=== PATIENT | male | born 1960 | race Two or more races ===

== ENCOUNTER 2023-04-11 06:34 | Day surgery (SDC) | payer OTHER ==
[~2023-04-11] VITALS: Ht 175.3 cm; Wt 68.0 kg
[~2023-04-11 06:34] MED LIST: ATO40T PO; DOXAPRAM HCL 20 MG/ML 20ML VIAL INJ IV ONE; DexAMETHasone SOD PHOS 10MG/1ML VIAL INJ ONE; GLYCOPYRROLATE 0.2 MG/ML 1ML VIAL ONE; LIDOCAINE 1% HCL (LOCAL ANESTH.) INJ 20ML MDV ONE; LIDOCAINE 2% JELLY 11ml (GLYDO) ONE; MEPERIDINE HCL (25 MG/ML) 1ML VIAL ONE; MIDAZOLAM HCL 2MG/2ML 2ml VIAL (1mg/ml) ONE; NEOSTIGMINE 1 MG/ML INJ (10mg/10ML VIAL) ONE; ONDANSETRON HCL 4 MG/2 ML VIAL ONE; PROPOFOL 10 MG/ML 20 ML IV ONE; ROCURONIUM 10MG/ML 10ML VIAL IV ONE; SODIUM CHLORIDE LOCK 0 ML ONE; SUCCINYLCHOLINE CHLORIDE 20 MG/ML 10ML VIAL IV ONE; TAMS0.4C36 PO; fentaNYL CITRATE 0 ML ONE
[2023-04-11] MEDS ORDERED: GABAPENTIN 300 MG CAP PO ONE (06:45)
[2023-04-11] MEDS ORDERED: CELECOXIB 100 MG CAP PO ONE (06:45)
[2023-04-11] MEDS ORDERED: ACETAMINOPHEN IV 1000 MG/100ML (10MG/ML) IV ONE (06:45)
[2023-04-11] MEDS ORDERED: ceFAZolin 2 GM/D5W100ml 100 ML IV ONE (07:31)
[2023-04-11 07:40] VITALS: TEMP 97.9
[2023-04-11] MEDS ORDERED: LIDOCAINE HCL (LOCAL ANESTH.) 0.5 % 50ML MDV IJ ONE (08:06)
[2023-04-11] MEDS ORDERED: PROPOFOL 10 MG/ML 20 ML IV ONE (08:25)
[2023-04-11] MEDS ORDERED: LIDOCAINE 2% (LOCAL ANESTH.) PF 5ml SDV ONE ×2 (08:26→09:47)
[2023-04-11] MEDS ORDERED: ONDANSETRON HCL 4 MG/2 ML VIAL ONE (08:26)
[2023-04-11] MEDS ORDERED: DexAMETHasone SOD PHOS 10MG/1ML VIAL INJ ONE (08:26)
[2023-04-11] MEDS ORDERED: KETOROLAC TROMETH 30 MG/ML 1ML VIAL ONE (08:26)
[2023-04-11] MEDS ORDERED: ROCURONIUM 10MG/ML 10ML VIAL IV ONE (08:26)
[2023-04-11] MEDS ORDERED: GLYCOPYRROLATE 0.2 MG/ML 1ML VIAL ONE (08:26)
[2023-04-11] MEDS ORDERED: fentaNYL CITRATE 100 MCG/2 ML VL ONE (08:29)
[2023-04-11] MEDS ORDERED: SUGAMMADEX 200mg/2ml Vial (100MG/ML) IV ONE (08:29)
[2023-04-11] MEDS ORDERED: ePHEDrine SULFATE 50 MG/ML AMP ONE (08:56)
[2023-04-11 10:52] VITALS: O2SAT 96
[2023-04-11] MEDS ORDERED: fentaNYL CITRATE 100 MCG/2 ML VL IV PRN (11:00)
[2023-04-11] MEDS ORDERED: oxyCODONE HCL 5MG TAB PO PRN (11:00)
[2023-04-11] MEDS ORDERED: HYDROmorphone HCL 2 MG/ML VL/or syr IV PRN (11:00)
[2023-04-11] MEDS ORDERED: NALOXONE HCL 0.4 MG/ML VIAL IV PRN (11:00)
[2023-04-11] MEDS ORDERED: ePHEDrine SULFATE 50 MG/ML AMP IV PRN (11:00)
[2023-04-11] MEDS ORDERED: LABETALOL HCL 5 MG/ML 4ML SYRINGE IV PRN (11:00)
[2023-04-11] MEDS ORDERED: FLUMAZENIL 0.1 MG/ML INJ 10ML MDV IV PRN (11:00)
[2023-04-11] MEDS ORDERED: ONDANSETRON HCL 4 MG/2 ML VIAL IV PRN (11:00)
[2023-04-11] MEDS ORDERED: hydrALAZINE HCL 20 MG/ML VL IV PRN (11:00)
[2023-04-11] MEDS ORDERED: HYDROmorphone HCL 2 MG/ML VL/or syr ONE (11:22)
[2023-04-11] MEDS ORDERED: oxyCODONE HCL 5MG TAB ONE (11:40)
[2023-04-11 12:22] VITALS: BP 110/66; PULSE 78; RESP 15; O2SAT 96
== END 2023-04-11 12:35 | disposition home or self-care (01) ==
LOC: SUR 06:34
PROVIDERS: ATTEND Surgery
DX: K40.90 Unilateral inguinal hernia, without obstruction or gangrene, not specified as recurrent (principal); Z87.891 Personal history of nicotine dependence
CPT/HCPCS: 49650; 86850; 86900; 86901; C1713; C1781; J0131; J0330; J1100; J1170; J1885; J2001; J2175; J2405; J2704; J3010; J7030; J2250